=== PATIENT | female | born 2000 | race Caucasian/White ===

== ENCOUNTER 2019-10-11 15:56 | Emergency (ER) | payer OTHER ==
[~2019-10-11] VITALS: Ht 157.5 cm; Wt 79.8 kg
[2019-10-11] MEDS ORDERED: NORFLEX100MG PO (18:03)
[2019-10-11] MEDS ORDERED: DICLOFENAC SODI75 MG PO (18:03)
== END 2019-10-11 18:12 | disposition home or self-care (01) ==
LOC: ER 15:56
DX: S13.4XXA Sprain of ligaments of cervical spine, initial encounter (principal); M54.5 Low back pain; M54.6 Pain in thoracic spine; V49.88XA Car occupant (driver) (passenger) injured in other specified transport accidents, initial encounter; Y93.89 Activity, other specified; Y92.488 Other paved roadways as the place of occurrence of the external cause; Y99.8 Other external cause status

== ENCOUNTER 2025-04-30 12:31 | Emergency (ER) | payer OTHER ==
[~2025-04-30] VITALS: Ht 157.5 cm; Wt 90.3 kg
[~2025-04-30 12:31] MED LIST: DICLOFENAC SODI75 MG PO; NORFLEX100MG PO
[2025-04-30] MEDS ORDERED: PRENATE DHA SO1 EAC1 (12:39)
[2025-04-30] MEDS ORDERED: ACETAMINOPHEN 500 MG GEL..CAP PO ONE (14:45)
== END 2025-04-30 16:43 ==
LOC: ER 12:31
DX: O26.892 Other specified pregnancy related conditions, second trimester (principal); T14.8XXA Other injury of unspecified body region, initial encounter; V49.9XXA Car occupant (driver) (passenger) injured in unspecified traffic accident, initial encounter; Y93.89 Activity, other specified; Y92.413 State road as the place of occurrence of the external cause; Y99.9 Unspecified external cause status; Z3A.22 22 weeks gestation of pregnancy

== ENCOUNTER 2025-06-17 13:59 | Outpatient (CLI) | payer OTHER ==
[2025-06-17 13:22] VITALS: BP 98/61
[~2025-06-17 13:59] MED LIST changes: +PRENATE DHA SO1 EAC1
[2025-06-17] MEDS ORDERED: ECOTRIN81 MG PO (14:08)
[2025-06-17] MEDS ORDERED: RINGERS SOLUTION,LACTATED 1,000 ML IV SCH (14:15)
[2025-06-17 15:13] VITALS: BP 120/75; O2SAT 99
[2025-06-17 15:29] LABS: BASO % 0.2 % (0.1-1.2); EOS # 0.17 (0.04-0.54); EOS % 1.6 % (0.7-7.0); LYMPH # 1.25 (1.18-3.74); LYMPH % 11.7 % (19.3-53.1); MEAN PLATELET VOLUME 10.10 fl (9.4-12.4); MONO # 0.99 (0.24-0.82); MONO % 9.3 % (4.7-12.5); NEUT # 8.15 (1.56-6.13); NEUT % 76.2 % (34.0-71.1); RED CELL DISTRIBUTION WIDTH 13.8 % (11.6-14.4)
[2025-06-17 19:58] VITALS: BP 124/79
[2025-06-17 23:15] VITALS: BP 114/64
[2025-06-18 04:12] VITALS: BP 104/66
[2025-06-18 07:18] VITALS: BP 102/63
[2025-06-18 12:01] VITALS: BP 109/72
[2025-06-18 15:00] VITALS: BP 109/72
== END 2025-06-19 13:49 | disposition home or self-care (01) ==
LOC: OBS/DEL 13:59
PROVIDERS: Obstetrics & Gynecology; ATTEND Specialist
DX: O36.8130 Decreased fetal movements, third trimester, not applicable or unspecified (principal); O26.849 Uterine size-date discrepancy, unspecified trimester; Z3A.28 28 weeks gestation of pregnancy